=== PATIENT | female | born 1935 | race Two or more races ===

== ENCOUNTER 2022-06-16 18:20 | Inpatient (IN) | payer OTHER, MEDICAID ==
[~2022-06-16] VITALS: Ht 157.5 cm; Wt 45.5 kg
[2022-06-16 19:40] LABS: Basophils # (auto) 0 10 ^3/uL (0-0.2); Basophils % (auto) 0.3 % (0.0-2.0); Eosinophils # (auto) 0 10 ^3/uL (0-0.8); Eosinophils % (auto) 0.2 % (0.0-7.0); Hematocrit 36.8 % (36.0-46.0); Hemoglobin 12.4 g/dL (12.2-16.2); Lymphocytes # (auto) 0.8 10 ^3/uL (0.4-5.4); Lymphocytes % (auto) 12.7 % (10.0-50.0); Mean Corpuscular Hemoglobin 31.2 pg (28.0-32.0); Mean Corpuscular Hgb Conc. 33.8 g/dL (32.0-36.0); Mean Corpuscular Volume 92.5 fL (80.0-100.0); Monocytes # (auto) 0.3 10 ^3/uL (0-1.3); Monocytes % (auto) 4.3 % (0.0-12.0); Neutrophils # (auto) 5.2 10 ^3/uL (1.6-8.6); Neutrophils % (auto) 82.5 % (37.0-80.0); Red Blood Cells 3.98 10^6/uL (4.0-5.20); White Blood Cell 6.3 10^3/uL (4.4-10.8)
[2022-06-16 19:43] LABS: Urine Bacteria NONE SEEN /hpf (None Seen); Urine Blood TRACE /uL (Negative); Urine Specific Gravity 1.016 (1.001-1.035); Urine WBC 1 /hpf (0 - 5)
[2022-06-16 19:54] LABS: Albumin 3.2 g/dL (3.4-5.0); Calcium 8.2 mg/dL (8.5-10.1); Potassium 3.7 mmol/L (3.5-5.1)
[2022-06-16 19:56] LABS: BUN/Creatinine Ratio 26.1
[2022-06-16 19:58] LABS: Total Protein 8.2 g/dL (6.4-8.2)
[2022-06-16] MEDS ORDERED: ACETAMINOPHEN 325 MG TAB PO ONE (20:00)
[2022-06-16] MEDS ORDERED: levoFLOXacin 500MG 100 ML IV ONE (22:15)
[2022-06-17] MEDS ORDERED: DOCUSATE SOD 100 MG CAP PO PRN (02:30)
[2022-06-17] MEDS ORDERED: ALBUTEROL SULF 2.5 MG/0.5ML(0.5%) NEB SOLN NEB PRN (02:30)
[2022-06-17] MEDS ORDERED: IPRATROPIUM BROM 0.5 MG/2.5ML INH SOL NEB PRN (02:30)
[2022-06-17] MEDS ORDERED: ONDANSETRON HCL 4 MG/2 ML VIAL IV PRN (02:30)
[2022-06-17] MEDS ORDERED: ACETAMINOPHEN 325 MG TAB PO PRN (02:30)
[2022-06-17] MEDS ORDERED: HYDROcodone-ACET 5/325MG TAB PO PRN (02:30)
[2022-06-17] MEDS ORDERED: MORPHINE SULFATE INJ 2 MG/ml SYRG IV PRN (05:30)
[2022-06-17] MEDS ORDERED: NITROGLYCERIN 0.4 MG SL TAB SL PRN (05:30)
[2022-06-17] MEDS ORDERED: ALBUMIN 25% 100 ML IV ONE (06:00)
[2022-06-17] MEDS ORDERED: hydrALAZINE HCL 20 MG/ML VL IV PRN (06:00)
[2022-06-17] MEDS: SODIUM CHLORIDE 0.9% 1,000 ML IV SCH (06:25)
[2022-06-17 07:36] LABS: Basophils # (auto) 0 10 ^3/uL (0-0.2); Basophils % (auto) 0.2 % (0.0-2.0); Eosinophils # (auto) 0 10 ^3/uL (0-0.8); Eosinophils % (auto) 0.4 % (0.0-7.0); Hematocrit 35.2 % (36.0-46.0); Hemoglobin 11.7 g/dL (12.2-16.2); Lymphocytes # (auto) 0.5 10 ^3/uL (0.4-5.4); Lymphocytes % (auto) 14.4 % (10.0-50.0); Mean Corpuscular Hgb Conc. 33.3 g/dL (32.0-36.0); Mean Corpuscular Volume 93.1 fL (80.0-100.0); Monocytes # (auto) 0.2 10 ^3/uL (0-1.3); Monocytes % (auto) 6.6 % (0.0-12.0); Neutrophils # (auto) 2.9 10 ^3/uL (1.6-8.6); Neutrophils % (auto) 78.4 % (37.0-80.0); Red Blood Cells 3.78 10^6/uL (4.0-5.20); Red Cell Distribution Width 13.1 % (11.8-14.3); White Blood Cell 3.6 10^3/uL (4.4-10.8)
[2022-06-17 07:53] LABS: Albumin 3.8 g/dL (3.4-5.0); BUN/Creatinine Ratio 24.4; Calcium 8.4 mg/dL (8.5-10.1); Potassium 3.4 mmol/L (3.5-5.1)
[2022-06-17 07:55] LABS: Bilirubin, Total 0.9 mg/dL (0.2-1.0); Total Protein 8.7 g/dL (6.4-8.2)
[2022-06-17 08:49] VITALS: BP 130/76
[2022-06-17] MEDS: FAMOTIDINE (10MG/ML) 2ML VL IV SCH (10:31)
[2022-06-18] MEDS: levoFLOXacin 500MG 100 ML IV SCH ×2 (00:27→21:03)
[2022-06-18] MEDS ORDERED: LORazepam 2MG/ML-1ML VIAL IV ONE ×2 (00:45→01:45)
[2022-06-18] MEDS: SODIUM CHLORIDE 0.9% 1,000 ML IV SCH ×2 (03:03→12:02)
[2022-06-18 04:46] LABS: Basophils # (auto) 0 10 ^3/uL (0-0.2); Basophils % (auto) 0.2 % (0.0-2.0); Eosinophils # (auto) 0 10 ^3/uL (0-0.8); Eosinophils % (auto) 0.2 % (0.0-7.0); Hematocrit 38.1 % (36.0-46.0); Hemoglobin 12.9 g/dL (12.2-16.2); Lymphocytes # (auto) 0.6 10 ^3/uL (0.4-5.4); Mean Corpuscular Hemoglobin 31.6 pg (28.0-32.0); Monocytes # (auto) 0.4 10 ^3/uL (0-1.3); Monocytes % (auto) 8.4 % (0.0-12.0); Neutrophils # (auto) 4.1 10 ^3/uL (1.6-8.6); Neutrophils % (auto) 80.2 % (37.0-80.0); Red Blood Cells 4.09 10^6/uL (4.0-5.20); White Blood Cell 5.2 10^3/uL (4.4-10.8)
[2022-06-18 05:06] LABS: Albumin 3.5 g/dL (3.4-5.0); Calcium 8.8 mg/dL (8.5-10.1); Potassium 3.4 mmol/L (3.5-5.1)
[2022-06-18 05:11] LABS: BUN/Creatinine Ratio 20.9; Bilirubin, Total 0.9 mg/dL (0.2-1.0); Total Protein 9.2 g/dL (6.4-8.2)
[2022-06-18] MEDS: FAMOTIDINE (10MG/ML) 2ML VL IV SCH (10:51)
[2022-06-18 15:30] VITALS: BP 139/89
[2022-06-18 17:11] VITALS: BP 139/89
[2022-06-18 22:00] VITALS: BP 146/84
[2022-06-19 05:00] VITALS: BP 140/84
[2022-06-19] MEDS: SODIUM CHLORIDE 0.9% 1,000 ML IV SCH (06:14)
[2022-06-19 09:00] VITALS: BP 137/92
[2022-06-19] MEDS: FAMOTIDINE (10MG/ML) 2ML VL IV SCH (09:35)
[2022-06-19] MEDS ORDERED: ALBUAER3 IN (12:35)
[2022-06-19] MEDS ORDERED: LEVO500T31 PO (12:35)
[2022-06-19 13:00] VITALS: BP 134/87
[2022-06-19 13:22] VITALS: BP 137/92
== END 2022-06-19 15:44 | disposition home or self-care (01) | DRG 190 ==
LOC: ER 18:20 → OVERFLOW 06-17 05:30 → TELE-WESTW 06-18 15:36 → WEST WING 06-18 16:47
PROVIDERS: ADMIT Nurse Practitioner Family; ATTEND Family Medicine
DX: J44.0 Chronic obstructive pulmonary disease with (acute) lower respiratory infection (principal); J18.9 Pneumonia, unspecified organism; E44.0 Moderate protein-calorie malnutrition; Z68.1 Body mass index [BMI] 19.9 or less, adult; J44.1 Chronic obstructive pulmonary disease with (acute) exacerbation; G30.9 Alzheimer's disease, unspecified; Z20.822 Contact with and (suspected) exposure to COVID-19; F02.80 Dementia in other diseases classified elsewhere, unspecified severity, without behavioral disturbance, psychotic disturbance, mood disturbance, and anxiety; R51.9 Headache, unspecified; Z85.3 Personal history of malignant neoplasm of breast; Z90.11 Acquired absence of right breast and nipple
CPT/HCPCS: 36415; 70450; 71046; 80053; 81001; 84484; 85025; 87040; 87426; 93005; 96365; 96375; 96376; G0378; J1956; J3490; P9047